=== PATIENT | male | born 1945 | race Caucasian/White ===

== ENCOUNTER 2024-07-25 08:15 | Observation (INO) ==
[2024-07-25] MEDS ORDERED: IOPAMIDOL 100 ML BOTTLE IV ONE (08:16)
[2024-07-25 08:52] LABS: Basophils # (Auto) 0.03 K/mcL (0.00-0.30); Basophils % (Auto) 0.3 % (0.0-2.0); Eosinophils # (Auto) 0.04 K/mcL (0.00-0.70); Eosinophils % (Auto) 0.5 % (0.0-7.0); Hematocrit 49.5 % (40.1-51.0); Hemoglobin 16.6 g/dL (13.7-17.5); Lymphocytes # (Auto) 0.91 K/mcL (1.50-4.80); Lymphocytes % (Auto) 10.4 % (15.5-49.0); Mean Cell Volume 95.2 fL (80.0-100.0); Mean Corpuscular HGB Conc 33.5 g/dL (31.0-36.0); Mean Platelet Volume 10.6 fL (8.8-12.5); Monocytes # (Auto) 0.48 K/mcL (0.10-0.90); Monocytes % (Auto) 5.5 % (1.0-12.0); Neutrophils % (Auto) 82.8 % (38.0-78.0); Platelet Count 163 K/mcL (140-440); Red Cell Distribution Width 12.9 % (11.5-14.5); WBC 8.8 K/mcL (4.5-11.0)
[2024-07-25] MEDS: MECLIZINE 25 MG TABLET PO ONE (08:55)
[2024-07-25] MEDS: ONDANSETRON 4 MG/2 ML VIAL IV ONE (08:55)
[2024-07-25 09:13] LABS: Thyroid Stimulating Hormone 1.84 uIU/mL (0.27-5.01)
[2024-07-25 09:55] LABS: ALT/SGPT 37 U/L (<40); AST/SGOT 29 U/L (<40); Albumin 4.3 gm/dL (3.2-5.2); Albumin/Globulin Ratio 1.5 (1.0-2.3); Alkaline Phosphatase 77 U/L (39-117); Bilirubin,Total 0.9 mg/dL (0.1-1.0); Blood Urea Nitrogen 21 mg/dL (8-23); Calcium 9.8 mg/dL (8.6-10.4); Carbon Dioxide 21 mmol/L (22-30); Chloride 104 mmol/L (96-108); Globulin 2.8 gm/dL (2.2-3.7); Glomerular Filtration Rate 64; Glucose 194 mg/dL (70-105); Potassium 4.5 mmol/L (3.3-5.1); Sodium 140 mmol/L (133-145)
[2024-07-25] MEDS: LORazepam 2 MG/ML VIAL IV ONE (10:37)
[2024-07-25] MEDS: 0.9 % SODIUM CHLORIDE 500 ML IV ONE (10:37)
[2024-07-25] MEDS: 0.9 % SODIUM CHLORIDE 1,000 ML IV ONE ×2 (15:27→20:58)
[2024-07-25] MEDS ORDERED: ONDANSETRON 4 MG/2 ML VIAL IV PRN ×2 (17:46→18:56)
[2024-07-25] MEDS ORDERED: ACETAMINOPHEN 325 MG TABLET PO PRN (17:46)
[2024-07-25 17:52] LABS: Appearance,Urine Turbid (Clear); Bilirubin,Urine Small mg/dL (Negative); Color,Urine Red; Glucose,Urine (UA) 100 mg/dL (Negative); Ketones,Urine Trace mg/dL (Negative); Leukocyte Esterase,Urine Negative /uL (Negative); Nitrate,Urine Negative (Negative); PH,Urine 8.5 (5.0-9.0); Protein,Urine >=300 mg/dL (Negative); Urine Blood Large ery/mcL (Negative); Urine RBC > 182 /hpf (0-1); Urine Squamous Epithelial Cell 0 /hpf (0-4); Urine WBC > 1 /hpf (0-4); Urobilinogen,Urine Normal
[2024-07-25] MEDS ORDERED: DEXTROSE 31 GM ORAL.SUSP PO PRN (18:56)
[2024-07-25] MEDS ORDERED: METOCLOPRAMIDE 10 MG/2 ML VIAL IV PRN (18:56)
[2024-07-25] MEDS ORDERED: MAGNESIUM SULFATE 2 GM/50 ML BAG IV PRN (18:56)
[2024-07-25] MEDS ORDERED: POLYETHYLENE GLYCOL 3350 17 GM PACKET PO PRN (18:56)
[2024-07-25] MEDS ORDERED: POTASSIUM CHLORIDE 40 MEQ in DEXTROSE 5% IN WATER 500 ML IV PRN (18:56)
[2024-07-25] MEDS ORDERED: POTASSIUM CHLORIDE 20 MEQ TABLET PO PRN ×2 (18:56)
[2024-07-25] MEDS ORDERED: morphine 4 MG/ML VIAL IV PRN (18:56)
[2024-07-25] MEDS ORDERED: DEXTROSE 50% 50 ML VIAL IV PRN (18:56)
[2024-07-25] MEDS ORDERED: IPRATROPIUM/ALBUTEROL 3 ML AMPUL.NEB NEB PRN (18:56)
[2024-07-25] MEDS ORDERED: SENNOSIDES 1 TABLET PO PRN (18:56)
[2024-07-25] MEDS: DOCUSATE SODIUM 100 MG CAPSULE PO SCH (20:57)
[2024-07-25] MEDS: DIAZEPAM 10 MG/2 ML SYRINGE IV ONE (20:57)
[2024-07-25] MEDS: ALLOPURINOL 100 MG TABLET PO SCH (20:57)
[2024-07-25] MEDS: MECLIZINE 25 MG TABLET PO SCH (20:57)
[2024-07-25] MEDS: LOSARTAN 50 MG TABLET PO SCH (20:57)
[2024-07-25] MEDS: amLODIPine 5 MG TABLET PO SCH (20:57)
[2024-07-25] MEDS: SCOPOLAMINE 1 PATCH PATCH TOPICAL SCH (20:58)
[2024-07-25] MEDS: INSULIN LISPRO 1 UNIT/0.01 ML UNIT SQ SCH (20:59)
[2024-07-25] MEDS: 0.9 % SODIUM CHLORIDE 10 ML SYRINGE IV SCH (21:00)
[2024-07-26] MEDS ORDERED: DIAZEPAM 10 MG/2 ML SYRINGE IV PRN (06:00)
[2024-07-26 06:11] LABS: ALT/SGPT 33 U/L (<40); AST/SGOT 25 U/L (<40); Albumin/Globulin Ratio 1.6 (1.0-2.3); Alkaline Phosphatase 68 U/L (39-117); Bilirubin,Direct 0.3 mg/dL (<0.3); Bilirubin,Total 0.6 mg/dL (0.1-1.0); Blood Urea Nitrogen 19 mg/dL (8-23); Calcium 8.9 mg/dL (8.6-10.4); Carbon Dioxide 23 mmol/L (22-30); Chloride 107 mmol/L (96-108); Globulin 2.5 gm/dL (2.2-3.7); Glomerular Filtration Rate 72; Glucose 109 mg/dL (70-105); Lactate Dehydrogenase 142 U/L (135-225); Phosphorous 3.2 mg/dL (2.5-4.5); Potassium 4.5 mmol/L (3.3-5.1); Sodium 141 mmol/L (133-145); Triglycerides 136 mg/dL (<150); Uric Acid 4.5 mg/dL (2.5-8.0)
[2024-07-26] MEDS: ENOXAPARIN 40 MG/0.4 ML SYRINGE SQ SCH (09:14)
[2024-07-26] MEDS: SCOPOLAMINE 1 PATCH PATCH TOPICAL ONE ×2 (10:01)
[2024-07-26] MEDS: diphenhydrAMINE 50 MG/ML VIAL IV PRN (13:57)
[2024-07-27 06:06] LABS: Basophils # (Auto) 0.04 K/mcL (0.00-0.30); Basophils % (Auto) 0.6 % (0.0-2.0); Eosinophils # (Auto) 0.19 K/mcL (0.00-0.70); Eosinophils % (Auto) 2.9 % (0.0-7.0); Hematocrit 45.6 % (40.1-51.0); Hemoglobin 15.2 g/dL (13.7-17.5); Lymphocytes # (Auto) 1.33 K/mcL (1.50-4.80); Lymphocytes % (Auto) 20.1 % (15.5-49.0); Mean Cell Volume 97.2 fL (80.0-100.0); Mean Corpuscular HGB Conc 33.3 g/dL (31.0-36.0); Mean Platelet Volume 10.6 fL (8.8-12.5); Monocytes # (Auto) 0.64 K/mcL (0.10-0.90); Monocytes % (Auto) 9.7 % (1.0-12.0); Neutrophils % (Auto) 66.4 % (38.0-78.0); Platelet Count 140 K/mcL (140-440); RBC 4.69 M/mcL (4.63-6.08); WBC 6.6 K/mcL (4.5-11.0)
[2024-07-27 06:35] LABS: Blood Urea Nitrogen 15 mg/dL (8-23); Carbon Dioxide 24 mmol/L (22-30); Chloride 104 mmol/L (96-108); Glomerular Filtration Rate 72; Glucose 101 mg/dL (70-105); Potassium 4.2 mmol/L (3.3-5.1); Sodium 139 mmol/L (133-145)
== END 2024-07-27 12:55 | disposition home or self-care (01) ==
LOC: ED 08:15 → MEDSUR 18:56 → INTOOBSV 18:56
PROVIDERS: ADMIT Internal Medicine; ATTEND Student in an Organized Health Care Education/Training Program